=== PATIENT | female | born 1980 | race Caucasian/White ===

== ENCOUNTER 2016-07-21 05:40 | Inpatient (IN) | payer MEDICAID ==
[~2016-07-21] VITALS: Ht 147.3 cm; Wt 63.7 kg
[2016-07-21 06:00] VITALS: BP 97/64; PULSE 66; RESP 18; BMI 29.4
[2016-07-21 06:11] VITALS: Ht 147.3 cm; Wt 63.7 kg
[2016-07-21 06:22] LABS: ADD SCAN DIFF NO
[2016-07-21] MEDS: LACTATED RINGER'S 1,000 ML IV SCH ×3 (06:27→18:48)
[2016-07-21] MEDS ORDERED: MISOPROSTOL 200 MCG TAB PR PRN ×2 (06:30→16:00)
[2016-07-21] MEDS ORDERED: OXYTOCIN 30 UNITS/LR 500 ML IV PRN ×2 (06:30→16:00)
[2016-07-21] MEDS ORDERED: CARBOPROST 250 MCG INJ IM PRN ×2 (06:30→16:00)
[2016-07-21] MEDS ORDERED: METHYLERGONOVINE 0.2 MG INJ IM PRN ×2 (06:30→16:00)
[2016-07-21] MEDS ORDERED: CEFAZOLIN 2 GM/50 ML (PMX) 50 ML IV SCH (06:30)
[2016-07-21 06:41] LABS: INR 1.1; PARTIAL THROMBOPLASTIN TIME 24.2 Sec (25.0-35.0); PROTIME 14.2 Sec (12.2-14.2); PT RATIO 1.1
[2016-07-21 06:49] LABS: BASOPHILS % 0.5 % (0.0-2.0); EOSINOPHILS # 0.2 10^3/ul (0.0-0.5); EOSINOPHILS % 3.6 % (0.0-7.0); HEMATOCRIT 31.1 % (37.0-47.0); HEMOGLOBIN 10.1 g/dl (12.0-16.0); LYMPHOCYTES # 1.7 10^3/ul (0.8-2.9); MEAN CORPUSCULAR HEMOGLOBIN 26.1 pg (29.0-33.0); MEAN CORPUSCULAR HGB CONC 32.5 g/dl (32.0-37.0); MEAN CORPUSCULAR VOLUME 80.4 fl (82.0-101.0); MEAN PLATELET VOLUME 10.7 fl (7.4-10.4); MONOCYTE # 0.4 10^3/ul (0.3-0.9); MONOCYTES % 7.3 % (0.0-11.0); NEUTROPHIL # 3.1 10^3/ul (1.6-7.5); NEUTROPHILS % 57.2 % (39.0-77.0); PLATELET COUNT 252 10^3/UL (140-415); RED BLOOD COUNT 3.87 10^6/ul (4.20-5.40); RED CELL DISTRIBUTION WIDTH 13.8 % (11.5-14.5); WHITE BLOOD COUNT 5.5 10^3/ul (4.8-10.8)
[2016-07-21] MEDS ORDERED: CITRIC ACID/NA CITRATE 30 ML CUP PO ONE (07:30)
[2016-07-21] MEDS ORDERED: FENTAnyl 50 MCG/ML VIAL ONE (07:31)
[2016-07-21] MEDS ORDERED: morphine SULFATE/PF (10 MG/10 ML) INJ ONE (07:31)
[2016-07-21] MEDS ORDERED: ONDANSETRON 4 MG INJ IV PRN ×3 (08:00→16:00)
[2016-07-21] MEDS ORDERED: NALOXONE (0.4 MG/ML) INJ IV PRN ×2 (08:00→10:00)
[2016-07-21] MEDS ORDERED: HYDROmorphONE 1 MG/ML SYG IV PRN ×5 (08:00→10:00)
[2016-07-21] MEDS ORDERED: DIPHENHYDRAMINE 50 MG INJ IV PRN ×3 (08:00→16:00)
[2016-07-21] MEDS ORDERED: ZOLPIDEM 5 MG TAB PO PRN ×2 (08:00→16:00)
[2016-07-21] MEDS ORDERED: KETOROLAC 30 MG INJ IV PRN ×2 (08:00→10:00)
[2016-07-21] MEDS ORDERED: KETOROLAC 30 MG INJ ONE (08:22)
[2016-07-21] MEDS ORDERED: ONDANSETRON 4 MG INJ ONE (08:22)
[2016-07-21] MEDS ORDERED: PROPOFOL 20 ML ONE (09:35)
--- NOTE | 2016-07-21 10:16 | HP ---
Date/Time of Note Date/Time of Note DATE: 07/21/16 TIME: 10:08 OB - History Hx of Present Free Text/Dictation 35y.o who had 3 c-s here for repeat c-s and tubal steilization not in labor had lap cholecystectomy during this in second timester. transferred after cholecstectomy to ur service from another Ob Estimated Due Date: Jul 27, 2016 : 4 Para: 3 Spontaneous : 0 Therapeutic : 0 Care: Good Care Ultrasounds: Normal mid trimester US Obstetrical Complications: Other (choolecystectomy during this ) Past Family/Social History * Past Medical, Surgical, Family and Obstetric Histories reviewed from chart. Blood Type: A+ Rubella: immune RPR/VDRL: Negative GBS Status: Negative HBsAG: Negative OB Admission Exam Vital Signs Vital Signs Vital Signs Date Time Temp Pulse Resp B/P Pulse Ox O2 Delivery O2 Flow Rate FiO2 07/21/16 06:00 98.4 66 18 97/64 Room Air Physical Exam HEENT: WNL Heart: Rhythm Normal Lungs: Clear, Equal Abdomen: WNL Extremities: Normal Reflexes: Normal Cervical Dilatation: other Effacement: Other Station: Other Membranes: Intact Amniotic Fluid: Unevaluable Heart Rate: 120's Accelerations: Accelerations Present Decelerations: No Decelerations Varibility: Moderate Contractions on Admission: >10 Minutes Apart Intensity: Mild Last 72 hours Lab Results CBC & BMP 07/21/16 06:07 OB Assessment/Plan Reason for admission: section Plan: Section IVANA PERERA MD Jul 21, 2016 10:16
[2016-07-21] MEDS ORDERED: OXYTOCIN 30 UNITS/LR 500 ML IV ONE (10:39)
[2016-07-21] MEDS: OXYTOCIN 30 UNITS/LR 500 ML IV SCH ×2 (10:47→14:41)
[2016-07-21 14:50] VITALS: BP 98/52; PULSE 61; RESP 20
[2016-07-21 15:20] VITALS: BP 102/55; PULSE 78; RESP 18
[2016-07-21] MEDS ORDERED: OXYCODONE/ACETAMINOPHEN (5/325) TAB PO PRN ×2 (16:00)
[2016-07-21] MEDS ORDERED: LANOLIN 7 GM TUBE TOP PRN (16:00)
[2016-07-21 16:20] VITALS: BP 105/55; PULSE 76; RESP 18
[2016-07-21] MEDS ORDERED: LACTATED RINGER'S 1,000 ML IV SCH (19:00)
[2016-07-21 19:50] VITALS: BP 92/55; PULSE 78; RESP 18
[2016-07-21] MEDS: SENNA/DOCUSATE NA (8.6MG/50MG) TAB PO SCH (21:05)
[2016-07-22] VITALS: BP 87/45; PULSE 69; RESP 18
[2016-07-22 04:15] VITALS: BP 90/49; RESP 18
[2016-07-22] MEDS: LACTATED RINGER'S 1,000 ML IV SCH (04:15)
[2016-07-22] MEDS: IBUPROFEN 600 MG TAB PO SCH ×4 (06:00→23:59)
[2016-07-22 08:30] VITALS: BP 91/53; PULSE 70; RESP 18
[2016-07-22] MEDS ORDERED: INFLUENZA VIRUS VACCINE 0.5 ML (DISPENSING) IM* ONE (09:00)
[2016-07-22 09:19] LABS: ADD UMIC YES; URINE BILIRUBIN (Dip) NEGATIVE (NEGATIVE); URINE BLOOD (Dip) NEGATIVE (NEGATIVE); URINE COLOR LT. YELLOW (YELLOW); URINE GLUCOSE (Dip) NEGATIVE (NEGATIVE); URINE KETONES (Dip) NEGATIVE (NEGATIVE); URINE LEUKOCYTE ESTERASE (Dip) 1+ (NEGATIVE); URINE NITRITE (Dip) NEGATIVE (NEGATIVE); URINE TOTAL PROTEIN (Dip) NEGATIVE (NEGATIVE); URINE UROBILINOGEN (Dip) 0.2 E.U./dL (0.1-1.0)
[2016-07-22] MEDS: SENNA/DOCUSATE NA (8.6MG/50MG) TAB PO SCH ×2 (09:24→20:40)
[2016-07-22 09:38] LABS: BACTERIA,URINE RARE; URINE RBCS NONE SEEN /HPF (0)
[2016-07-22 09:46] LABS: ADD SCAN DIFF NO
[2016-07-22 09:48] LABS: BASOPHILS % 0.1 % (0.0-2.0); EOSINOPHILS # 0.2 10^3/ul (0.0-0.5); HEMATOCRIT 27.2 % (37.0-47.0); HEMOGLOBIN 8.8 g/dl (12.0-16.0); LYMPHOCYTES # 1.2 10^3/ul (0.8-2.9); LYMPHOCYTES % 15.1 % (15.0-51.0); MEAN CORPUSCULAR HEMOGLOBIN 26.2 pg (29.0-33.0); MEAN CORPUSCULAR HGB CONC 32.4 g/dl (32.0-37.0); MONOCYTE # 0.3 10^3/ul (0.3-0.9); MONOCYTES % 3.7 % (0.0-11.0); NEUTROPHIL # 6.4 10^3/ul (1.6-7.5); NEUTROPHILS % 78.9 % (39.0-77.0); PLATELET COUNT 229 10^3/UL (140-415); RED BLOOD COUNT 3.36 10^6/ul (4.20-5.40); WHITE BLOOD COUNT 8.1 10^3/ul (4.8-10.8)
[2016-07-22 12:00] VITALS: BP 90/57; PULSE 77; RESP 18
--- NOTE | 2016-07-22 13:59 | PN ---
Date/Time of Note Date/Time of Note DATE: 07/22/16 TIME: 13:56 OB Subjective Subjective Subjective PASSINF FLATUS NO C/O OB Objective Objective Objective VSS AFEBRILE ABDOMEN SOFT WOUND DRY LOCHIA MIN EXT NO TENDERNESS OB Assessment/Plan Other Assessment: STABLE PO #1 Other plan: ORDERED IVANA PERERA MD Jul 22, 2016 13:58
--- NOTE | 2016-07-22 15:12 | OPR ---
DATE OF OPERATION: 07/21/2016 PREOPERATIVE DIAGNOSES: 1. Intrauterine at 39 weeks 1 day, with 3 previous sections. 2. Multiparity, for tubal sterilization. POSTOPERATIVE DIAGNOSES: 1. at 39 weeks 1 day, with 3 previous sections. 2. Multiparity, for tubal sterilization. ANESTHESIA: Spinal. ANESTHESIOLOGIST: SURGEON: Su Cain MD PROJECT SURVEYOR: Dr. Faith Delivery of a normal infant. PROCEDURE PERFORMED: Repeat low transverse section, left salpingectomy, right tubal steril ization with Vida. ESTIMATED BLOOD LOSS: 600. PROCEDURE: Under appropriate induction of spinal anesthesia, the patient was placed in the frog pos ition. Cote was introduced into the bladder under sterile condition and repositioned to supine. A bdominal wall was prepped and draped in the usual aseptic manner. A transverse incision was made al christo the previous incisional scar. Scar tissue was excised. The incision was carried down through t he subcutaneous tissue to the anterior rectus fascia, which was incised transversely for the length of the incision. There was no rectus muscle visualized, it was almost completely . The fa scia was undermined gently and reached the abdominal cavity and low portion of the uterus was expose d. The low portion of the uterus was very thin and the bladder was very high and at point it was de cided to do the incision higher than normal level. The incision was carried down to the amniotic mem brane. The incision was extended bilaterally and membrane ruptured. Revealed clear amniotic fluid a nd a normal was born from the left occiput transverse position, with assist with the Kiwi gen tly for a couple of seconds. The cord was clamped and cut and [facility]. Cord blood was obtained. Placenta was removed manually. The cavity was compl etely explored after the uterus was exteriorized. The incision was closed using #1 chromic catgut i n continuous manner and the second layer using 0 chromic catgut in Lembert manner, thus imbricating the first layer of closure. No bleeder was noted. The left fallopian tube was identified, which wa s somewhat distorted by adhesions from the previous multiple surgeries, and at this point was going to be removed, which was doubly clamped with Pean forceps and doubly ligated, and a third sutu re was transfixed with 2-0 chromic catgut. A little bleeder between the ovary and the mesosalpinx wh ich was fixed with 2-0 chromic catgut on a SH needle. On the right side the fallopian tube was iden tified, which was long, and able to do the Vida and create a loop of tube. This loop of tube was doubly ligated with 0 plain and the loop of tube was excised. The tubal lumen was cauterized. No bleeder was noted. After checking the uterine incision, which was intact, the uterus was relocated after irrigation was done and checked both fallopian tubes, which were intact. No bleeder was noted . Sponge count was correct and the parietal peritoneum was closed using 0 chromic catgut transverse ly since the incision was more likely transversed. There was no way to bring both rectus muscles b ecause they were far . One piece of Surgicel was laid under the fascia and the fascia was closed with #1 Vicryl in continuous manner in 2 segments. The subcutaneous tissue was irrigated wit h water. This layer was approximated with 2-0 plain after adequate hemostasis was secured. The ski n was closed with a 3-0 Monocryl in subcuticular manner. Steri-Strips were applied. Pressure dress ing was applied. Estimated blood loss was approximately 600 mL. The patient withstood the procedur e well and was sent to the recovery room in stable condition. Dictated By: SU BRYAN/MAY Conf#: [id number] DID#: [id number]
[2016-07-22 16:00] VITALS: BP 97/54; PULSE 74
[2016-07-22 20:30] VITALS: BP 107/64; PULSE 60; RESP 16
[2016-07-23 04:16] VITALS: BP 92/55; PULSE 62; RESP 17
[2016-07-23] MEDS: IBUPROFEN 600 MG TAB PO SCH ×3 (05:35→17:35)
[2016-07-23 08:30] VITALS: BP 87/55; PULSE 55; RESP 18
[2016-07-23] MEDS: SENNA/DOCUSATE NA (8.6MG/50MG) TAB PO SCH ×2 (09:41→21:00)
[2016-07-23 16:46] VITALS: BP_SYST 71; PULSE 71; RESP 18
[2016-07-23 20:30] VITALS: BP 105/55; PULSE 71; RESP 18
--- NOTE | 2016-07-23 20:33 | PN ---
Date/Time of Note Date/Time of Note DATE: 07/23/16 TIME: 20:30 OB Subjective Subjective Subjective had bowel movement urination ok OB Objective Objective Objective vss afebrile abdomen soft wound dry lochia min calf neg for tenderness OB Assessment/Plan Other Assessment: stable post SECTION REPEAT BTL Other plan: discharge home in am IVANA PERERA MD Jul 23, 2016 20:32
--- NOTE | 2016-07-23 20:35 | PD.PPDC ---
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
--- NOTE | 2016-07-23 20:38 | DS ---
Date/Time of Note Date/Time of Note DATE: 07/23/16 TIME: 20:37 Obstetrical Discharge Record Final Diagnosis Final Diagnosis: Term delivered Vaginal Delivery Obstetrical Delivery: Bilateral Tubal Ligation Section Section: Repeat Complications Augmentation: No Induction: No Condition on Discharge Physical Assessment Last Vitals: VSS AFEBRILE Voiding: Yes Bowel Movement: Yes Breast: Soft, non-tender Fundus: Firm Abdomen and Incision: SOFT WOUND DRY Calf Tenderness: No Patient Condition: Stable IVANA PERERA MD Jul 23, 2016 20:38
[2016-07-24] MEDS: IBUPROFEN 600 MG TAB PO SCH ×3 (00:29→11:26)
[2016-07-24 05:22] VITALS: BP 105/55; PULSE 60; RESP 18
[2016-07-24 07:40] VITALS: BP 101/57; PULSE 57; RESP 16
[2016-07-24] MEDS: SENNA/DOCUSATE NA (8.6MG/50MG) TAB PO SCH (08:43)
[2016-07-24] MEDS ORDERED: DIPHTH/TET/ACEL PERTUSS (ADULT) 0.5 ML VIAL IM* ONE (09:00)
== END 2016-07-24 11:45 | disposition home or self-care (01) | DRG 766 ==
LOC: L-D 05:40 → PP1 14:27
PROVIDERS: ADMIT Obstetrics & Gynecology; ATTEND Obstetrics & Gynecology
PROC: 0UT60ZZ Resection of Left Fallopian Tube, Open Approach (ICD-10-PCS; 2016-07-21)
PROC: 0UB50ZZ Excision of Right Fallopian Tube, Open Approach (ICD-10-PCS; 2016-07-21)
PROC: 10D00Z1 Extraction of Products of Conception, Low, Open Approach (ICD-10-PCS; principal; 2016-07-21 07:30)
DX: O34.211 Maternal care for low transverse scar from previous cesarean delivery (principal); N83.8 Other noninflammatory disorders of ovary, fallopian tube and broad ligament; Z3A.39 39 weeks gestation of pregnancy; Z37.0 Single live birth; Z30.2 Encounter for sterilization
CPT/HCPCS: 81001; 81003; 85025; 85610; 85730; 86592; 86850; 86900; 86901; 87086; 87340; 88302; 90686; 90715; 94760; 99464; J0690; J1200; J1885; J2274; J2405; J2590; J3010; J7120

== ENCOUNTER 2016-07-30 09:28 | Emergency (ER) | payer MEDICAID ==
[~2016-07-30] VITALS: Wt 61.0 kg
[2016-07-30 10:31] LABS: ADD SCAN DIFF NO
[2016-07-30 10:34] LABS: BASOPHILS % 0.4 % (0.0-2.0); EOSINOPHILS # 0.3 10^3/ul (0.0-0.5); EOSINOPHILS % 4.4 % (0.0-7.0); HEMATOCRIT 26.1 % (37.0-47.0); HEMOGLOBIN 8.2 g/dl (12.0-16.0); LYMPHOCYTES # 1.8 10^3/ul (0.8-2.9); LYMPHOCYTES % 24.9 % (15.0-51.0); MEAN CORPUSCULAR HEMOGLOBIN 25.6 pg (29.0-33.0); MEAN CORPUSCULAR HGB CONC 31.4 g/dl (32.0-37.0); MEAN CORPUSCULAR VOLUME 81.6 fl (82.0-101.0); MEAN PLATELET VOLUME 9.5 fl (7.4-10.4); MONOCYTE # 0.3 10^3/ul (0.3-0.9); MONOCYTES % 4.8 % (0.0-11.0); NEUTROPHIL # 4.6 10^3/ul (1.6-7.5); NEUTROPHILS % 65.2 % (39.0-77.0); PLATELET COUNT 412 10^3/UL (140-415); RED CELL DISTRIBUTION WIDTH 14.6 % (11.5-14.5)
[2016-07-30 10:46] LABS: POTASSIUM 4.4 mmol/L (3.5-5.1)
[2016-07-30 10:48] LABS: CREATININE 0.51 mg/dl (0.44-1.00)
[2016-07-30 10:49] LABS: CALCIUM 8.6 mg/dl (8.4-10.2)
--- NOTE | 2016-07-30 11:42 | RADRPT ---
PROCEDURE: US Pelvis CLINICAL INDICATION: Vaginal bleeding. The patient is status post recent delivery on [facility] 1. TECHNIQUE: Sonographic evaluation of the pelvis was performed utilizing transabdominal technique. Curved array transabdominal transducer technique was utilized. Images were reviewed on the [employer] PACS workstation. COMPARISON: Ultrasound dated 04/07/2016. FINDINGS: The uterus measures 14.85 cm x 7.57 cm x 10.09 cm in dimension. The uterus is anteverted in loreta l position. The endometrium measures 4.39 cm in thickness. There is fluid and heterogeneous echog enicity within the endometrial canal. There is no flow within the endometrial contents. The right ovary measures 3.51 cm x 2.05 cm x 2.99 cm in dimension. The left ovary measures 4.18 cm x 1.87 cm x 2.96 cm in dimension. There is normal flow demonstrated within the ovaries. There are no adnexal masses. There is no significant free fluid within the pelvis. IMPRESSION: 1. Thickened endometrium with fluid and heterogeneous contents within the endometrial canal, suspic ious for retained products of conception given the patient's history. STAFF PSYCHIATRIST consultation and short interval follow-up is recommended. RPTAT: UU .Bob Aguirre MD, Date Time Electronically viewed and signed by .Bob Aguirre MD, MD on 07/30/2016 11:42 .P/
[2016-07-30 12:36] LABS: INR 1.21; PROTIME 15.4 Sec (12.2-14.2); PT RATIO 1.2
[2016-07-30 12:37] LABS: PARTIAL THROMBOPLASTIN TIME 24.9 Sec (25.0-35.0)
[2016-07-30] MEDS ORDERED: CEPH-443 PO (12:39)
[2016-07-30] MEDS ORDERED: METH0.2V2 PO (12:40)
[2016-07-30] MEDS ORDERED: CEFAZOLIN 2 GM/50 ML (PMX) 50 ML IVPB ONE (13:00)
[2016-07-30] MEDS ORDERED: METHYLERGONOVINE 0.2 MG TAB PO ONE (13:00)
--- NOTE | 2016-07-30 14:01 | ERD ---
ER Documentation Chief Complaint Date/Time DATE: 07/30/16 TIME: 13:41 Chief Complaint VAG BLEED SINCE YESTERDAY S/P C SECTION 07/21/16. NO DYSURIA, NO N/V HPI This is a 36-year-old presenting to the emergency department for vaginal bleeding 2 days. Patient had recent on 07/21/2016 about 9 days ago. Patient states she had no bleeding after and started having heavy vaginal bleeding yesterday. Patient states she had a 2 hour period of heavy menstrual bleeding with clots which became light spotting last night. Patient states today she started having heavy vaginal bleeding again. Patient unsure how many pads she is going through. Patient states this is her fourth C- section. Patient has 4 children. No dysuria. No abdominal pain, nausea or vomiting. No fevers or chills. No complications during delivery. No history of preeclampsia, eclampsia or HEELP. Patient's CITY DISTRIBUTION CLERK is Dr. Chica Cain. ROS All systems reviewed and are negative except as per history of present illness. Medications Home Meds Active Scripts Methylergonovine Maleate* (Methylergonovine Maleate*) 0.2 Mg/1 Ml Vial, 0.2 MG PO Q6H for BLEEDING, #16 TAB Prov:NACHO VASQUEZ NP 07/30/16 Cephalexin* (Keflex*) 500 Mg Capsule, 500 MG PO QID for 5 Days, CAP Prov:NACHO VASQUEZ NP 07/30/16 Allergies Allergies: Coded Allergies: No Known Drug Allergy (Verified Allergy, Unknown, 02/14/16) PMhx/Soc Medical and Surgical Hx: pt denies Medical Hx, pt denies Surgical Hx Hx Alcohol Use: No Hx Substance Use: No Hx Tobacco Use: No Smoking Status: Never smoker Physical Exam Vitals Vital Signs Date Time Temp Pulse Resp B/P Pulse Ox O2 Delivery O2 Flow Rate FiO2 07/30/16 09:36 98.9 101 21 104/59 98 Physical Exam Const: No acute distress, alert Head: Atraumatic Eyes: Normal Conjunctiva ENT: Normal External Ears, Nose and Mouth. Neck: Full range of motion..~ No meningismus. Resp: Clear to auscultation bilaterally. No wheezing, rhonchi or crackles. Cardio: Regular rate and rhythm, no murmurs Abd: Soft, non tender, non distended. Normal bowel sounds Skin: No petechiae or rashes Back: No midline or flank tenderness Ext: No cyanosis, or edema Neur: Awake and alert Psych: Normal Mood and Affect Result Diagram: 07/30/16 1018 07/30/16 1018 Results 24 hrs Laboratory Tests Test 07/30/16 10:18 07/30/16 12:15 07/30/16 12:20 Anion Gap 13 Basophils # 0.010^3/ul Basophils % 0.4% Blood Urea Nitrogen 12mg/dl Calcium Level 8.6mg/dl Carbon Dioxide Level 27mmol/L Chloride Level 106mmol/L Creatinine 0.51mg/dl Eosinophils # 0.310^3/ul Eosinophils % 4.4% Glucose Level 84mg/dl Hematocrit 26.1% Hemoglobin 8.2g/dl Lymphocytes # 1.810^3/ul Lymphocytes % 24.9% Mean Corpuscular Hemoglobin 25.6pg Mean Corpuscular Hemoglobin Concent 31.4g/dl Mean Corpuscular Volume 81.6fl Mean Platelet Volume 9.5fl Monocytes # 0.310^3/ul Monocytes % 4.8% Neutrophils # 4.610^3/ul Neutrophils % 65.2% Nucleated Red Blood Cells # 0.010^3/ul Nucleated Red Blood Cells % 0.0/100WBC Platelet Count 83897^3/UL Potassium Level 4.4mmol/L Red Blood Count 3.2010^6/ul Red Cell Distribution Width 14.6% Sodium Level 142mmol/L White Blood Count 7.010^3/ul Activated Partial Thromboplast Time 24.9Sec INR International Normalized Ratio 1.21 Prothrombin Time 15.4Sec Prothrombin Time Ratio 1.2 Beta HCG, Quantitative 12.8mIU/ml Current Medications Medications (Trade) Dose Ordered Sig/Elmer Route PRN Reason Start Time Stop Time Status Last Admin Dose Admin Methylergonovine Maleate 0.2 mg 0.2 mg ONCE ONCE PO 07/30/16 13:00 07/30/16 13:01 DC 07/30/16 13:16 Cefazolin Sodium/ Dextrose (Ancef 2 Gm/50 ml (Pmx)) 50 ml @ 100 mls/hr ONCE ONCE IVPB 07/30/16 13:00 07/30/16 13:29 DC 07/30/16 13:16 Procedures/MDM ED COURSE: The patient was stable throughout ED course. I kept the patient and/or family informed of laboratory and diagnostic imaging results throughout the ED course. Laboratory CBC hemoglobin 8.2, hematocrit 26.1 BMP no significant electrolyte imbalance PT 15.4 PTT 24.9 INR 1.21 Beta-hCG 12.8 Imaging Pelvic ultrasound Patient: MERCY DAVIS : 1980 Age: 36 Sex: F MR #: [id number] DOS: 07/30/16 1010 Ordering MD: NACHO VASQUEZ NP Location: [facility] Room/Bed: PROCEDURE: US Pelvis CLINICAL INDICATION: Vaginal bleeding. The patient is status post recent C- section delivery on July 20. TECHNIQUE: Sonographic evaluation of the pelvis was performed utilizing transabdominal technique. Curved array transabdominal transducer technique was utilized. Images were reviewed on the high-resolution PACS workstation. COMPARISON: Ultrasound dated 04/07/2016. FINDINGS: The uterus measures 14.85 cm x 7.57 cm x 10.09 cm in dimension. The uterus is anteverted in normal position. The endometrium measures 4.39 cm in thickness. There is fluid and heterogeneous echogenicity within the endometrial canal. There is no flow within the endometrial contents. The right ovary measures 3.51 cm x 2.05 cm x 2.99 cm in dimension. The left ovary measures 4.18 cm x 1.87 cm x 2.96 cm in dimension. There is normal flow demonstrated within the ovaries. There are no adnexal masses. There is no significant free fluid within the pelvis. IMPRESSION: 1. Thickened endometrium with fluid and heterogeneous contents within the endometrial canal, suspicious for retained products of conception given the patient's history. CITY DISTRIBUTION CLERK consultation and short interval follow-up is recommended. MDM: 36-year-old female presents emergency department for vaginal bleeding after . Patient states vaginal bleeding started yesterday last night. Patient states she had a 2 hour window of heavy menstrual bleeding that became media supervisor and became light spotting. Patient states this morning she started having heavy menstrual bleeding again. Labs show hemoglobin 8.2 which is down trending from 10.1 on 07/21. Pelvic ultrasound reviewed by radiologist shows thickened endometrium with fluid and heterogeneous contents within the endometrial canal, suspicious for retained products of conception given the patient's history. CITY DISTRIBUTION CLERK consultation and short interval follow-up is recommended. Spoke with Dr. Pappas who is recommending patient be started on Methergine 0.2mg PO and Ancef 2gm IVPB. IV access was obtained per staff editor .patient started on Ancef while in the ED. And given 1 dose of Methergine 0.[address] Pappas is recommending patient be given a prescription for Methergine and Keflex and is safe for discharge home. Vital signs remained stable. No hypertension, hypotension or tachycardia. No fevers or chills. Patient remains calm and comfortable. No lightheadedness or dizziness. Differential diagnosis includes but not limited to normal bleeding, retained products of conception, delayed hemorrhage, secondary hemorrhage, coagulation defects, uterine atony, fibroids, pelvic inflammatory disease, UTI, pyelonephritis and endometriosis. Patient is appropriate for outpatient management will be given prescription for Methergine and Keflex. Instructed patient to follow-up with FANNIE Sharma, in 24-48 hours for reassessment and additional management. Return to ED for any high fever, chest pain, difficulty breathing, shortness breath, wheezing , vomiting, diarrhea, abdominal pain or any new or worsening symptoms. Patient verbalizes understanding. All questions answered at discharge. Departure Diagnosis: Primary Impression: Bleeding hemorrhage type: unspecified Qualified Code: O72.1 - hemorrhage, unspecified type Condition: Stable Patient Instructions: Discharge Referrals: [facility] Usted se genao hecho un examen mdico de control que le indica que no est en art condicin que requiera tratamiento urgente en el Departamento de Emergencia. Un estudio ms profundo y el tratamiento de pool condicin pueden esperar sin ningn riesgo hasta que usted sea atendida/o en el consultorio de pool mdico o art cl caty. Es responsabilidad suya arreglar art candice para el seguimiento del tiffany. MANEJO DE CONDICIONES NO URGENTES EN EL FUTURO 1) Si usted tiene un mdico de atencin primaria: Usted debera llamar a pool mdico de atencin primaria antes de venir al departamento de emergencia. Despus de las horas de consultorio, pool doctor o pool asociado/a est disponible por telfono. El mdico o enfermero de breann en el servicio telefnico puede asesorarle por kedar medio para atender el problema, o tiffany contrario se puede programar art candice. 2) Si usted no tiene un mdico de atencin primaria: Llame al mdico o clnica de referencia que aparece abajo luis las horas de consultorio para hacer art candice para que le vean. CLINICAS: [place] [address] [phone] [facility] [phone] [facility] [phone] [place] [address] [phone] [place] [address] [phone] [facility]. [phone] [address] [facility] () Nina se genao hecho un examen mdico de control que le indica que no est en art condicin que requiera tratamiento urgente en el Departamento de Emergencia. Un estudio ms profundo y el tratamiento de pool condicin pueden esperar sin ningn riesgo hasta que usted sea atendida/o en el consultorio de pool mdico o art cl caty. Es responsabilidad suya arreglar art candice para el seguimiento del tiffany. MANEJO DE CONDICIONES NO URGENTES EN EL FUTURO 1) Si usted tiene un mdico de atencin primaria: Usted debera llamar a pool mdico de atencin primaria antes de venir al departamento de emergencia. Despus de las horas de consultorio, pool doctor o pool asociado/a est disponible por telfono. El mdico o enfermero de breann en el servicio telefnico puede asesorarle por kedar medio para atender el problema, o tiffany contrario se puede programar art candice. 2) Si usted no tiene un mdico de atencin primaria: Llame al mdico o condado institucions de referencia que aparece abajo luis las horas de consultorio para hacer art candice para que le vean. SI USTED NO PUEDE PAGAR PARA GUANAKITO UN MEDICO puede ir a: [facility] [address] [place] [address] [facility] [address] [place] [address] [facility] [address] [place] [address] PARA NAI [facility] [address] [place] [address] Additional Instructions: Llame al doctor MAANA y frances art CANDICE PARA DENTRO DE 1-2 ANDREWS.Dgale a la secretaria que nosotros le instruimos hacer esta candice.Avise o llame si pool condicin se empeora antes de la candice. Regresa aqui si peor o no mejor. Follow up with Dr. Chica Cain on Monday08/01/2016 Return to ED for any high fever, chest pain, difficulty breathing, shortness breath, wheezing, vomiting, diarrhea, abdominal pain or any new or worsening symptoms. Patient verbalizes understanding. All questions answered at discharge. NACHO VASQUEZ NP Jul 30, 2016 13:54
[2016-07-30 14:55] VITALS: BP 110/56; PULSE 70; RESP 18; TEMP 98.2
== END 2016-07-30 14:50 | disposition home or self-care (01) ==
LOC: FTE 09:28
DX: O72.1 Other immediate postpartum hemorrhage (principal)
CPT/HCPCS: 36415; 76830; 80048; 84702; 85025; 85610; 85730; 86900; 86901; 96374; J0690; Z7502; Z7610